=== PATIENT | male | born 1945 ===

== ENCOUNTER 2021-05-19 05:58 | Day surgery (SDC) | payer OTHER ==
[~2021-05-19 05:58] MED LIST: SYNTHROID50 MCG PO; VASOTEC20 M1 PO; ZOCOR40 MG PO
[2021-05-19] MEDS ORDERED: ULTRAM50 MG PO (13:39)
== END 2021-05-19 14:45 | disposition home or self-care (01) ==
LOC: CIR.AMB 05:58
PROVIDERS: ATTEND Surgery
DX: N48.6 Induration penis plastica (principal); N47.1 Phimosis